=== PATIENT | male | born 1980 | race African-American/Black ===

== ENCOUNTER → 2016-12-19 | Day surgery (SDC) | payer BC ==
[~2016-12-19] VITALS: Ht 182.9 cm; Wt 93.5 kg
[~2016-12-19] MED LIST: FLOMAX0.4 MG PO; ROXICODONE 5MG (5 MG PO; THERAGRAN-M1 TAB PO
--- NOTE | ~2016-12-19 | OR ---
PATIENT'S NAME: RUBEN BARRON [facility] AGE: 36 Y [address] ROOM: [place] [address] LOCATION: [facility] [place] ADMIT DATE: 12/19/2016 OR/Procedure Report DISCHARGE DATE: FAMILY PHYSICIAN: Sundeep Laguna MD ATTENDING PHYSICIAN: Ace Cortes SURGEON: Ace Cortes MD TELECOMMUNICATIONS FIELD ENGINEER: DATE OF PROCEDURE: 12/19/2016 PREOPERATIVE DIAGNOSIS: Right ureter stone. POSTOPERATIVE DIAGNOSIS: Right ureter stone. PROCEDURE PERFORMED: Cystoscopy, right ureteral stent placement, and right extracorporeal shock wave lithotripsy. ANESTHESIA: MAC. COMPLICATIONS: None. INDICATION FOR PROCEDURE: The patient is a 36-year-old male with a 9 mm lower right ureter stone with pain and obstruction. DETAILS OF PROCEDURE: After informed consent obtained, the patient was taken to the operating room. A MAC anesthetic was applied and he was placed in a dorsal lithotomy position. The groin area was prepped and draped in a normal sterile fashion. Cystoscope was introduced into the urethra and bladder without difficulty. The right ureteral orifice was cannulated with the guidewire up into the renal pelvis. I then attempted to manipulate the stone up into the renal pelvis using a yellow Flexi-Tip catheter. I also tried injecting saline through the catheter up against the stone just to move it up in the renal pelvis unsuccessfully. Following this, I placed a 4.8 multi- length ureteral stent over a guidewire, passed the stone with some difficulty up into the renal pelvis. Radiographic imaging showed good position of the stent. The patient was then transferred to the lithotripsy table. Fluoroscopy was used to target his stone. He received shocks starting at 16 kilovolts and gradually increased to 26 kilovolts. The patient received a total of 3000 shocks and the stone appeared to fragment with treatment. The patient tolerated his procedure well and was transferred to the recovery room in good condition. PATIENT'S NAME: RUBEN BARRON [facility] AGE: 36 Y [address] ROOM: [place] [address] LOCATION: [facility] [place] ADMIT DATE: 12/19/2016 OR/Procedure Report DISCHARGE DATE: FAMILY PHYSICIAN: Sundeep Laguna MD ATTENDING PHYSICIAN: Ace Cortes MD HCARANJIT GUERRERO/eulalia /[id number] CC: Sundeep Laguna MD d: 12/19/16 2146 t: 12/26/16 1646, OPERATIVE SUMMARY
== END | disposition disaster alternative care site (69) ==
LOC: GPOC 12:30 → GSDC 12:47
PROC: 0T768DZ Dilation of Right Ureter with Intraluminal Device, Via Natural or Artificial Opening Endoscopic (ICD-10-PCS; principal; 2016-12-19)
PROC: 0TF3XZZ Fragmentation in Right Kidney Pelvis, External Approach (ICD-10-PCS; 2016-12-19)
DX: N20.1 Calculus of ureter (principal)
CPT/HCPCS: C1769; C2617; J1100; J1956; J2001; J2405; J7120